=== PATIENT | male | born 1965 | race Caucasian/White ===

== ENCOUNTER 2018-08-15 13:59 | Emergency (ER) | payer MEDICAID, OTHER ==
[~2018-08-15] VITALS: Ht 175.3 cm; Wt 104.3 kg
[2018-08-15] MEDS ORDERED: IV NORMAL SALINE 1000 ML BAG IV ONE (14:15)
[2018-08-15] MEDS ORDERED: PANTOPRAZOLE SODIUM 40 MG VIAL IV ONE (14:15)
[2018-08-15] MEDS ORDERED: ONDANSETRON 4 MG/2 ML VIAL IV ONE (14:15)
--- NOTE | 2018-08-15 14:15 | NUR ---
Dr Tristan at the bedside for MSE.
--- NOTE | 2018-08-15 14:27 | NUR ---
Pt refused EKG, IV insertion and blood work. Dr Tristan made aware.
[2018-08-15] MEDS ORDERED: PANTOPRAZOLE SODIUM 40 MG TABLET.DR PO ONE ×2 (14:37→14:45)
[2018-08-15] MEDS ORDERED: ONDANSETRON 4 MG/2 ML VIAL ONE (14:37)
[2018-08-15] MEDS ORDERED: ONDANSETRON 4 MG/2 ML VIAL IM ONE (14:45)
--- NOTE | 2018-08-15 15:06 | NUR ---
Patient eloped from facility. ER physician notified.
== END 2018-08-15 15:15 | disposition left against medical advice (07) ==
LOC: ER 14:10
DX: F10.129 Alcohol abuse with intoxication, unspecified (principal); G89.29 Other chronic pain; R10.84 Generalized abdominal pain; J44.9 Chronic obstructive pulmonary disease, unspecified; F17.210 Nicotine dependence, cigarettes, uncomplicated; Z88.8 Allergy status to other drugs, medicaments and biological substances; Y90.9 Presence of alcohol in blood, level not specified
CPT/HCPCS: 93005; 96372; 99283; J2405; A4663; J7030